=== PATIENT | female | born 2000 | race Hispanic/Latino ===

== ENCOUNTER 2023-07-31 13:38 | Emergency (ER) | payer MEDICAID, OTHER ==
[~2023-07-31] VITALS: Ht 152.4 cm; Wt 51.3 kg
[2023-07-31 18:17] VITALS: BP 110/62; PULSE 74; RESP 18; O2SAT 100
== END 2023-07-31 18:59 | disposition home or self-care (01) ==
LOC: EDH 13:38
DX: S81.011A Laceration without foreign body, right knee, initial encounter (principal); W01.0XXA Fall on same level from slipping, tripping and stumbling without subsequent striking against object, initial encounter; Y93.89 Activity, other specified; Y92.89 Other specified places as the place of occurrence of the external cause; Y99.8 Other external cause status
CPT/HCPCS: 12001; 73562